=== PATIENT | male | born 1970 | race Caucasian/White ===

== ENCOUNTER 2021-07-18 10:45 | Inpatient (IN) | payer OTHER, SELFPAY ==
[~2021-07-18 10:45] MED LIST: Iopamidol 370 76% 100 ML VIAL ONE; Magnevist 469MG/ML 20 ML VIAL ONE
[2021-07-18 11:01] LABS: #Eosinphils 0.1 thou/uL (0.0-0.7); #Lymphocytes 2.8 thou/uL (1.20-3.40); #Monocytes 0.5 thou/uL (0.11-0.59); #Neutrophils 2.8 thou/uL (1.40-6.50); %Basophils 0.8 % (0.0-1.0); %Eosinophils 1.9 % (0.0-10.0); %Monocytes 8.2 % (0.0-10.0); %Neutrophils 45.1 % (42.0-75.0); Hemoglobin 11.9 g/dL (14.0-18.0); Mean Corpuscular HGB CONC 32.3 g/dL (32.0-36.0); Mean Corpuscular Hemoglobin 28.9 pg (27.0-31.0); Mean Corpuscular Volume 89.2 fL (78.0-98.0); Platelet Count 186 thou/uL (130-400); RBC Distribution Width 14.2 % (11.5-14.5); Red Blood Cell (RBC) Count 4.12 mill/uL (4.70-6.10); White Blood Cell (WBC) Count 6.3 thou/uL (4.8-10.8)
[2021-07-18 11:13] LABS: PTT 30.3 sec (22.9-36.1); Prothrombin Time 13.3 sec (12.0-14.7)
[2021-07-18 11:21] LABS: ALT (SGPT) 8 U/L (8-55); AST (SGOT) 11 U/L (5-34); Albumin 4.2 g/dL (3.5-5.0); Alkaline Phosphatase 54 U/L (40-110); Anion Gap 14 mmol/L (10-20); BUN (Urea Nitrogen) 8 mg/dL (8.4-25.7); Bilirubin, Total 0.2 mg/dL (0.2-1.2); Calc. Creatinine Clearance 0 mL/min (70-130); Carbon Dioxide 23 mmol/L (22-29); Chloride 108 mmol/L (98-107); Globulin 2.9 g/dL (2.4-3.5); Glucose 105 mg/dL (70-105); Potassium 4.3 mmol/L (3.5-5.1); Protein, Total 7.1 g/dL (6.0-8.3); Sodium 141 mmol/L (136-145)
[2021-07-18] MEDS ORDERED: Acetaminophen 650 MG Suppository PR PRN (15:00)
[2021-07-18] MEDS ORDERED: Bisacodyl 10 MG SUPP PR PRN (15:00)
[2021-07-18] MEDS ORDERED: Ondansetron PF 4 MG/2 ML Vial IVP PRN (15:00)
[2021-07-18 16:28] VITALS: BMI 28.5
[2021-07-18 17:55] LABS: Bacteria/HPF None Seen HPF (None Seen); Bilirubin Negative (Negative); Blood, Urine Negative (Negative); Clarity Clear (Clear); Glucose, Urine (Dipstick) Normal (Negative); Ketone, Urine Negative (Negative); Leukocyte Negative Leu/uL (Negative); Nitrite Negative (Negative); Protein, Urine (Dipstick) Negative (Neg-Trace); RBC/HPF 0-3 HPF (0-3); Specific Gravity, Urine 1.021 (1.002-1.036); Squamous Epithelial None Seen HPF (0-3); Urobilinogen Normal mg/dL (Less than 2); WBC/HPF 0-3 HPF (0-3)
[2021-07-18 18:10] LABS: SARS-CoV-2 NAA Rapid Test Not Detected (NotDetected)
[2021-07-18] MEDS: Sodium Chloride 0.45% 1,000 ML IV SCH (18:24)
[2021-07-18] MEDS: Ketorolac Tromethamine 30 MG/ML VIAL IVP PRN (18:37)
[2021-07-19] MEDS: Ketorolac Tromethamine 30 MG/ML VIAL IVP PRN ×2 (02:02→08:08)
[2021-07-19] MEDS: Sodium Chloride 0.45% 1,000 ML IV SCH ×3 (02:03→20:51)
[2021-07-19 05:50] LABS: #Eosinphils 0.1 thou/uL (0.0-0.7); #Monocytes 0.4 thou/uL (0.11-0.59); #Neutrophils 2.7 thou/uL (1.40-6.50); %Basophils 0.6 % (0.0-1.0); %Eosinophils 1.9 % (0.0-10.0); %Lymphocytes 47.6 % (21.0-51.0); %Monocytes 6.9 % (0.0-10.0); %Neutrophils 43.1 % (42.0-75.0); Hemoglobin 11.6 g/dL (14.0-18.0); Mean Corpuscular HGB CONC 32.4 g/dL (32.0-36.0); Mean Corpuscular Hemoglobin 28.6 pg (27.0-31.0); Mean Corpuscular Volume 88.2 fL (78.0-98.0); Platelet Count 178 thou/uL (130-400); Red Blood Cell (RBC) Count 4.06 mill/uL (4.70-6.10); White Blood Cell (WBC) Count 6.3 thou/uL (4.8-10.8)
[2021-07-19 06:10] LABS: Anion Gap 12 mmol/L (10-20); BUN (Urea Nitrogen) 7 mg/dL (8.4-25.7); Calc. Creatinine Clearance 169 mL/min (70-130); Calcium 9.4 mg/dL (7.8-10.44); Carbon Dioxide 24 mmol/L (22-29); Chloride 107 mmol/L (98-107); Glucose 86 mg/dL (70-105); Potassium 4.1 mmol/L (3.5-5.1); Sodium 139 mmol/L (136-145)
[2021-07-19] MEDS ORDERED: Pantoprazole 40 MG VIAL IVP SCH (09:00)
[2021-07-19] MEDS: VANCOMYCIN 2 GRAM/500 ML BAG 2 GM in Premix Bag 1 BAG IVPB SCH (12:09)
[2021-07-19] MEDS: Morphine 2 MG/ML VIAL SLOW IVP PRN (15:01)
[2021-07-19] MEDS: Cefepime 2 GM in Sodium Chloride 0.9% 100 ML IVPB SCH (15:02)
[2021-07-19] MEDS: hydrALAZINE 25 MG TAB PO SCH ×2 (17:21→20:42)
[2021-07-19] MEDS: Atorvastatin Calcium 40 MG TAB PO SCH (20:42)
[2021-07-19] MEDS: Carvedilol 25 MG TAB PO SCH (20:43)
[2021-07-19] MEDS: levETIRAcetam 500 MG TAB PO SCH (20:43)
[2021-07-20] MEDS: VANCOMYCIN 2 GRAM/500 ML BAG 2 GM in Premix Bag 1 BAG IVPB SCH (00:17)
[2021-07-20] MEDS: Morphine 2 MG/ML VIAL SLOW IVP PRN ×2 (01:20→05:36)
[2021-07-20] MEDS: Cefepime 2 GM in Sodium Chloride 0.9% 100 ML IVPB SCH (02:30)
[2021-07-20 05:50] LABS: #Eosinphils 0.1 thou/uL (0.0-0.7); #Lymphocytes 2.3 thou/uL (1.20-3.40); #Monocytes 0.5 thou/uL (0.11-0.59); #Neutrophils 2.8 thou/uL (1.40-6.50); %Basophils 0.4 % (0.0-1.0); %Eosinophils 2.2 % (0.0-10.0); %Lymphocytes 40.6 % (21.0-51.0); %Monocytes 8.3 % (0.0-10.0); %Neutrophils 48.6 % (42.0-75.0); Hemoglobin 11.4 g/dL (14.0-18.0); Mean Corpuscular HGB CONC 32.6 g/dL (32.0-36.0); Mean Corpuscular Hemoglobin 28.2 pg (27.0-31.0); Mean Corpuscular Volume 86.5 fL (78.0-98.0); Platelet Count 175 thou/uL (130-400); RBC Distribution Width 14.2 % (11.5-14.5); Red Blood Cell (RBC) Count 4.03 mill/uL (4.70-6.10); White Blood Cell (WBC) Count 5.7 thou/uL (4.8-10.8)
[2021-07-20 06:19] LABS: ALT (SGPT) 9 U/L (8-55); AST (SGOT) 12 U/L (5-34); Albumin 3.8 g/dL (3.5-5.0); Alkaline Phosphatase 54 U/L (40-110); Anion Gap 11 mmol/L (10-20); BUN (Urea Nitrogen) 7 mg/dL (8.4-25.7); Bilirubin, Total 0.3 mg/dL (0.2-1.2); Calc. Creatinine Clearance 179 mL/min (70-130); Calcium 9.3 mg/dL (7.8-10.44); Carbon Dioxide 23 mmol/L (22-29); Chloride 109 mmol/L (98-107); Glucose 84 mg/dL (70-105); Magnesium 1.8 mg/dL (1.6-2.6); Potassium 3.9 mmol/L (3.5-5.1); Protein, Total 6.8 g/dL (6.0-8.3); Sodium 139 mmol/L (136-145)
[2021-07-20] MEDS ORDERED: oxyCODONE ER 10 MG TAB PO SCH (09:00)
[2021-07-20] MEDS: Carvedilol 25 MG TAB PO SCH ×2 (09:08→22:02)
[2021-07-20] MEDS: levETIRAcetam 500 MG TAB PO SCH ×2 (09:08→22:07)
[2021-07-20] MEDS: hydrALAZINE 25 MG TAB PO SCH ×4 (09:08→22:02)
[2021-07-20] MEDS: Amlodipine 10 MG TAB PO SCH (09:08)
[2021-07-20] MEDS ORDERED: Iopamidol 370 76% 100 ML VIAL ONE (09:17)
[2021-07-20] MEDS: Acetaminophen 500 MG TAB PO SCH ×3 (09:54→22:02)
[2021-07-20] MEDS ORDERED: Dexamethasone 10 MG/ML VIAL SLOW IVP SCH (11:15)
[2021-07-20] MEDS: cefTRIAXone\\ROCEPHIN 2 GM in Sodium Chloride 0.9% 100 ML IVPB SCH ×2 (11:27→21:27)
[2021-07-20] MEDS: Sodium Chloride 0.45% 1,000 ML IV SCH (11:36)
[2021-07-20] MEDS: Prochlorperazine 10 MG/2 ML VIAL IVP SCH ×2 (13:46→19:54)
[2021-07-20] MEDS: diphenhydrAMINE 50 MG/ML VIAL IVP SCH ×2 (13:47→19:55)
[2021-07-20] MEDS: Dexamethasone 4 MG TAB PO SCH (19:54)
[2021-07-20] MEDS: Atorvastatin Calcium 40 MG TAB PO SCH (22:02)
[2021-07-21] MEDS: diphenhydrAMINE 50 MG/ML VIAL IVP SCH ×2 (01:14→05:55)
[2021-07-21] MEDS: Dexamethasone 4 MG TAB PO SCH ×4 (01:15→17:44)
[2021-07-21] MEDS: Prochlorperazine 10 MG/2 ML VIAL IVP SCH ×2 (01:15→05:55)
[2021-07-21 05:09] LABS: #Lymphocytes 2.8 thou/uL (1.20-3.40); #Monocytes 0.5 thou/uL (0.11-0.59); #Neutrophils 3.5 thou/uL (1.40-6.50); %Basophils 0.4 % (0.0-1.0); %Eosinophils 0.6 % (0.0-10.0); %Lymphocytes 40.8 % (21.0-51.0); %Monocytes 7.5 % (0.0-10.0); %Neutrophils 50.7 % (42.0-75.0); Hemoglobin 11.7 g/dL (14.0-18.0); Mean Corpuscular HGB CONC 32.7 g/dL (32.0-36.0); Mean Corpuscular Hemoglobin 28.2 pg (27.0-31.0); Mean Corpuscular Volume 86.5 fL (78.0-98.0); Platelet Count 208 thou/uL (130-400); Red Blood Cell (RBC) Count 4.15 mill/uL (4.70-6.10); White Blood Cell (WBC) Count 6.9 thou/uL (4.8-10.8)
[2021-07-21 05:29] LABS: ALT (SGPT) 9 U/L (8-55); AST (SGOT) 10 U/L (5-34); Alkaline Phosphatase 53 U/L (40-110); Anion Gap 13 mmol/L (10-20); BUN (Urea Nitrogen) 10 mg/dL (8.4-25.7); Bilirubin, Total 0.3 mg/dL (0.2-1.2); Calc. Creatinine Clearance 174 mL/min (70-130); Calcium 9.5 mg/dL (7.8-10.44); Carbon Dioxide 23 mmol/L (22-29); Chloride 107 mmol/L (98-107); Globulin 3.2 g/dL (2.4-3.5); Glucose 104 mg/dL (70-105); Potassium 4.1 mmol/L (3.5-5.1); Protein, Total 7.2 g/dL (6.0-8.3); Sodium 139 mmol/L (136-145)
[2021-07-21] MEDS: Sodium Chloride 0.45% 1,000 ML IV SCH ×2 (05:55→17:47)
[2021-07-21] MEDS: Acetaminophen 500 MG TAB PO SCH ×3 (08:38→20:41)
[2021-07-21] MEDS: hydrALAZINE 25 MG TAB PO SCH ×4 (08:38→20:41)
[2021-07-21] MEDS: Amlodipine 10 MG TAB PO SCH (08:38)
[2021-07-21] MEDS: levETIRAcetam 500 MG TAB PO SCH ×2 (08:38→20:42)
[2021-07-21] MEDS: Carvedilol 25 MG TAB PO SCH ×2 (08:39→20:42)
[2021-07-21] MEDS: cefTRIAXone\\ROCEPHIN 2 GM in Sodium Chloride 0.9% 100 ML IVPB SCH ×2 (10:00→20:44)
[2021-07-21] MEDS: oxyCODONE ER 10 MG TAB PO SCH (11:19)
[2021-07-21] MEDS: diphenhydrAMINE 25 MG in Sodium Chloride 0.9% 50 ML IVPB SCH ×2 (12:22→17:44)
[2021-07-21] MEDS: Prochlorperazine Edisylate 10 MG in Sodium Chloride 0.9% 50 ML IVPB SCH ×2 (12:23→17:44)
[2021-07-21] MEDS: Atorvastatin Calcium 40 MG TAB PO SCH (20:42)
[2021-07-22] MEDS: Sodium Chloride 0.45% 1,000 ML IV SCH ×2 (00:43→20:09)
[2021-07-22] MEDS: diphenhydrAMINE 25 MG in Sodium Chloride 0.9% 50 ML IVPB SCH ×2 (00:43→05:28)
[2021-07-22] MEDS: Dexamethasone 4 MG TAB PO SCH ×5 (00:43→23:40)
[2021-07-22] MEDS: Prochlorperazine Edisylate 10 MG in Sodium Chloride 0.9% 50 ML IVPB SCH ×2 (01:18→05:53)
[2021-07-22] MEDS: oxyCODONE ER 10 MG TAB PO SCH ×2 (09:40→21:16)
[2021-07-22] MEDS: Amlodipine 10 MG TAB PO SCH (09:41)
[2021-07-22] MEDS: levETIRAcetam 500 MG TAB PO SCH ×2 (09:41→21:15)
[2021-07-22] MEDS: Acetaminophen 500 MG TAB PO SCH ×3 (09:42→21:15)
[2021-07-22] MEDS: Carvedilol 25 MG TAB PO SCH ×2 (09:42→21:15)
[2021-07-22] MEDS: hydrALAZINE 25 MG TAB PO SCH ×4 (09:42→21:14)
[2021-07-22] MEDS: cefTRIAXone\\ROCEPHIN 2 GM in Sodium Chloride 0.9% 100 ML IVPB SCH ×2 (09:43→22:23)
[2021-07-22] MEDS: Atorvastatin Calcium 40 MG TAB PO SCH (21:15)
[2021-07-23] MEDS: Dexamethasone 4 MG TAB PO SCH ×3 (05:37→16:06)
[2021-07-23] MEDS: Carvedilol 25 MG TAB PO SCH ×2 (08:44→21:07)
[2021-07-23] MEDS: Acetaminophen 500 MG TAB PO SCH ×3 (08:44→21:06)
[2021-07-23] MEDS: hydrALAZINE 25 MG TAB PO SCH ×4 (08:44→21:08)
[2021-07-23] MEDS: Sodium Chloride 0.45% 1,000 ML IV SCH (08:44)
[2021-07-23] MEDS: Amlodipine 10 MG TAB PO SCH (08:47)
[2021-07-23] MEDS: levETIRAcetam 500 MG TAB PO SCH ×2 (08:47→21:11)
[2021-07-23] MEDS: oxyCODONE ER 10 MG TAB PO SCH ×2 (09:34→21:55)
[2021-07-23] MEDS: cefTRIAXone\\ROCEPHIN 2 GM in Sodium Chloride 0.9% 100 ML IVPB SCH ×2 (09:37→21:11)
[2021-07-23] MEDS ORDERED: Amitriptyline HCl 10 MG TAB PO SCH (21:00)
[2021-07-23] MEDS: Atorvastatin Calcium 40 MG TAB PO SCH (21:07)
[2021-07-23 23:53] VITALS: BP 161/92; TEMP 97.5
[2021-07-24] MEDS: Dexamethasone 4 MG TAB PO SCH (00:14)
[2021-07-24] MEDS ORDERED: HYDROcodone/Acetaminophen 10/325 mg Tablet PO SCH (00:45)
[2021-07-24] MEDS: Sodium Chloride 0.45% 1,000 ML IV SCH (02:55)
== END 2021-07-24 03:17 | disposition short-term general hospital (02) | DRG 314 ==
LOC: ERS 10:45 → NEURO 14:38
PROVIDERS: ADMIT Family Medicine; ATTEND Internal Medicine
DX: T82.7XXA Infection and inflammatory reaction due to other cardiac and vascular devices, implants and grafts, initial encounter (principal); G93.6 Cerebral edema; I76 Septic arterial embolism; R45.851 Suicidal ideations; R47.01 Aphasia; M31.8 Other specified necrotizing vasculopathies; G81.91 Hemiplegia, unspecified affecting right dominant side; I66.9 Occlusion and stenosis of unspecified cerebral artery; I10 Essential (primary) hypertension; Z20.822 Contact with and (suspected) exposure to COVID-19; F41.9 Anxiety disorder, unspecified; D64.9 Anemia, unspecified; G40.909 Epilepsy, unspecified, not intractable, without status epilepticus; Y83.8 Other surgical procedures as the cause of abnormal reaction of the patient, or of later complication, without mention of misadventure at the time of the procedure; B95.61 Methicillin susceptible Staphylococcus aureus infection as the cause of diseases classified elsewhere; F31.9 Bipolar disorder, unspecified; Z90.09 Acquired absence of other part of head and neck; Z87.891 Personal history of nicotine dependence; Z88.0 Allergy status to penicillin; Z79.899 Other long term (current) drug therapy
CPT/HCPCS: 36415; 70450; 70496; 70498; 70553; 71045; 71260; 74177; 76705; 80048; 80053; 81001; 82550; 83605; 83735; 84484; 85025; 85610; 85652; 85730; 86140; 87040; 93005; 93306; 94760; 95712; 95819; 95957; A9579; C9113; J0692; J0696; J0780; J1100; J1200; J1885; J2270; J3370; J3490; J8540; Q9967; U0002

== ENCOUNTER 2021-09-17 11:34 | Emergency (ER) | payer OTHER ==
[2021-09-17] MEDS ORDERED: diphenhydrAMINE 50 MG/ML VIAL ONE (11:53)
[2021-09-17] MEDS ORDERED: Metoclopramide HCl 10 MG/2 ML VIAL ONE (11:53)
[2021-09-17 12:16] LABS: #Eosinphils 0.2 thou/uL (0.0-0.7); #Lymphocytes 3.3 thou/uL (1.20-3.40); #Monocytes 0.7 thou/uL (0.11-0.59); #Neutrophils 2.5 thou/uL (1.40-6.50); %Basophils 0.6 % (0.0-1.0); %Eosinophils 2.4 % (0.0-10.0); %Lymphocytes 49.6 % (21.0-51.0); %Monocytes 10.1 % (0.0-10.0); %Neutrophils 37.2 % (42.0-75.0); Hemoglobin 13.1 g/dL (14.0-18.0); Mean Corpuscular Hemoglobin 27.5 pg (27.0-31.0); Mean Corpuscular Volume 83.4 fL (78.0-98.0); Mean Platelet Volume 9.5 fL (7.4-10.4); Platelet Count 170 thou/uL (130-400); RBC Distribution Width 15.5 % (11.5-14.5); Red Blood Cell (RBC) Count 4.77 mill/uL (4.70-6.10); White Blood Cell (WBC) Count 6.7 thou/uL (4.8-10.8)
[2021-09-17 12:27] LABS: INR-International Normal Ratio 1.1; PTT 29.4 sec (22.9-36.1); Prothrombin Time 14.1 sec (12.0-14.7)
[2021-09-17 12:34] LABS: ALT (SGPT) 12 U/L (8-55); AST (SGOT) 12 U/L (5-34); Albumin 4.4 g/dL (3.5-5.0); Alkaline Phosphatase 59 U/L (40-110); Anion Gap 13 mmol/L (10-20); BUN (Urea Nitrogen) 10 mg/dL (8.4-25.7); Bilirubin, Total 0.3 mg/dL (0.2-1.2); Calc. Creatinine Clearance 0 mL/min (70-130); Calcium 9.6 mg/dL (7.8-10.44); Carbon Dioxide 23 mmol/L (22-29); Chloride 109 mmol/L (98-107); Estimated GFR 108; Globulin 2.6 g/dL (2.4-3.5); Glucose 108 mg/dL (70-105); Potassium 3.9 mmol/L (3.5-5.1); Sodium 141 mmol/L (136-145)
[2021-09-17 13:24] LABS: SARS-CoV-2 NAA Rapid Test Not Detected (NotDetected)
== END 2021-09-17 14:30 | disposition home or self-care (01) ==
LOC: ERS 11:34
DX: R51.9 Headache, unspecified (principal); I10 Essential (primary) hypertension; T82.7XXD Infection and inflammatory reaction due to other cardiac and vascular devices, implants and grafts, subsequent encounter; Z20.822 Contact with and (suspected) exposure to COVID-19; Z86.73 Personal history of transient ischemic attack (TIA), and cerebral infarction without residual deficits; Z87.891 Personal history of nicotine dependence; Z79.82 Long term (current) use of aspirin; Z79.899 Other long term (current) drug therapy
CPT/HCPCS: 36415; 70450; 71045; 80053; 83605; 84484; 85025; 85610; 85730; 86850; 86900; 86901; 87040; 93005; 96365; 96366; 96375; J1200; J2765; U0002

== ENCOUNTER 2021-09-29 11:44 | Emergency (ER) | payer OTHER ==
[2021-09-29] MEDS ORDERED: Amlodipine 5 MG TAB ONE (12:15)
== END 2021-09-29 13:21 | disposition home or self-care (01) ==
LOC: ERS 11:44
DX: I10 Essential (primary) hypertension (principal); Z86.73 Personal history of transient ischemic attack (TIA), and cerebral infarction without residual deficits; Z87.891 Personal history of nicotine dependence; Z79.82 Long term (current) use of aspirin; Z79.899 Other long term (current) drug therapy
CPT/HCPCS: 93005

== ENCOUNTER 2021-11-03 14:22 | Inpatient (IN) | payer OTHER ==
[2021-11-03 15:19] LABS: #Basophils 0.1 thou/uL (0.0-0.2); #Eosinphils 0.1 thou/uL (0.0-0.7); #Lymphocytes 3.9 thou/uL (1.20-3.40); #Monocytes 0.7 thou/uL (0.11-0.59); #Neutrophils 3.4 thou/uL (1.40-6.50); %Basophils 0.6 % (0.0-1.0); %Eosinophils 1.1 % (0.0-10.0); %Lymphocytes 47.8 % (21.0-51.0); %Monocytes 8.3 % (0.0-10.0); %Neutrophils 42.1 % (42.0-75.0); Hemoglobin 13.4 g/dL (14.0-18.0); Mean Corpuscular HGB CONC 33.1 g/dL (32.0-36.0); Mean Corpuscular Hemoglobin 27.5 pg (27.0-31.0); Mean Corpuscular Volume 83.1 fL (78.0-98.0); Platelet Count 228 thou/uL (130-400); RBC Distribution Width 15.9 % (11.5-14.5); Red Blood Cell (RBC) Count 4.87 mill/uL (4.70-6.10); White Blood Cell (WBC) Count 8.2 thou/uL (4.8-10.8)
[2021-11-03 16:07] LABS: ALT (SGPT) 20 U/L (8-55); AST (SGOT) 15 U/L (5-34); Albumin 4.5 g/dL (3.5-5.0); Alkaline Phosphatase 66 U/L (40-110); Anion Gap 13 mmol/L (10-20); BUN (Urea Nitrogen) 15 mg/dL (8.4-25.7); Bilirubin, Total 0.4 mg/dL (0.2-1.2); Calc. Creatinine Clearance 0 mL/min (70-130); Calcium 9.9 mg/dL (7.8-10.44); Carbon Dioxide 24 mmol/L (22-29); Chloride 103 mmol/L (98-107); Estimated GFR 104; Globulin 2.8 g/dL (2.4-3.5); Glucose 129 mg/dL (70-105); Potassium 3.3 mmol/L (3.5-5.1); Protein, Total 7.3 g/dL (6.0-8.3); Sodium 137 mmol/L (136-145)
[2021-11-03 16:35] LABS: Bilirubin Negative (Negative); Blood, Urine Negative (Negative); Clarity Clear (Clear); Glucose, Urine (Dipstick) Normal (Negative); Ketone, Urine Negative (Negative); Leukocyte Negative Leu/uL (Negative); Nitrite Negative (Negative); Protein, Urine (Dipstick) Negative (Neg-Trace); Specific Gravity, Urine 1.023 (1.002-1.036); Urobilinogen Normal mg/dL (Less than 2)
[2021-11-03] MEDS ORDERED: Aspirin 325 MG TAB ONE (17:29)
[2021-11-03] MEDS ORDERED: Aspirin Chewable 81 MG TAB ONE (17:43)
[2021-11-03] MEDS ORDERED: Ondansetron PF 4 MG/2 ML Vial ONE (23:45)
[2021-11-03] MEDS ORDERED: Morphine 4 MG/ML VIAL ONE (23:45)
[2021-11-04] MEDS ORDERED: cefTRIAXone\\ROCEPHIN 1 GM VIAL ONE (00:30)
[2021-11-04 00:39] LABS: Acetaminophen Less than 10.0 mcg/mL (10.0-30.0); Alcohol Less than 10 mg/dL (Less than 10); Salicylate Less than 8.0 mg/dL (15.0-30.0)
[2021-11-04 00:40] LABS: Lipase 136 U/L (8-78); Magnesium 1.7 mg/dL (1.6-2.6)
[2021-11-04] MEDS ORDERED: Ondansetron PF 4 MG/2 ML Vial IVP PRN (01:19)
[2021-11-04] MEDS ORDERED: Potassium Chloride 20 MEQ TAB PO SCH (01:30)
[2021-11-04 01:42] LABS: SARS-CoV-2 NAA Rapid Test Not Detected (NotDetected)
[2021-11-04 01:55] LABS: Amphetamine Not Detected (NotDetected); Barbiturates Screen Not Detected (NotDetected); Benzodiazepine Screen Not Detected (NotDetected); Cocaine Metabolite Screen Not Detected (NotDetected); Methadone Not Detected (NotDetected); Methamphetamine Not Detected (NotDetected); Opiate Screen Not Detected (NotDetected); Oxycodone Screen Not Detected (NotDetected); Phencyclidine (PCP) Not Detected (NotDetected); THC/Cannabinoid Screen Not Detected (NotDetected); Tricyclic Screen Not Detected (NotDetected)
[2021-11-04] MEDS ORDERED: Vancomycin 1 GM/200 ML BAG ONE (02:24)
[2021-11-04] MEDS ORDERED: levETIRAcetam 500 MG TAB PO SCH ×2 (03:00→09:00)
[2021-11-04 03:07] VITALS: BMI 31.2
[2021-11-04] MEDS: Acetaminophen 325 MG TAB PO PRN ×2 (03:26→15:35)
[2021-11-04 05:26] LABS: #Eosinphils 0.1 thou/uL (0.0-0.7); #Lymphocytes 3.3 thou/uL (1.20-3.40); #Monocytes 0.7 thou/uL (0.11-0.59); #Neutrophils 5.3 thou/uL (1.40-6.50); %Basophils 0.2 % (0.0-1.0); %Eosinophils 0.7 % (0.0-10.0); %Lymphocytes 35.2 % (21.0-51.0); %Monocytes 7.3 % (0.0-10.0); %Neutrophils 56.6 % (42.0-75.0); Hemoglobin 14.1 g/dL (14.0-18.0); Mean Corpuscular HGB CONC 34.6 g/dL (32.0-36.0); Mean Corpuscular Hemoglobin 29.2 pg (27.0-31.0); Mean Corpuscular Volume 84.4 fL (78.0-98.0); Mean Platelet Volume 9.3 fL (7.4-10.4); Platelet Count 184 thou/uL (130-400); RBC Distribution Width 15.7 % (11.5-14.5); Red Blood Cell (RBC) Count 4.84 mill/uL (4.70-6.10); White Blood Cell (WBC) Count 9.3 thou/uL (4.8-10.8)
[2021-11-04 05:42] LABS: Anion Gap 16 mmol/L (10-20); BUN (Urea Nitrogen) 15 mg/dL (8.4-25.7); Calc. Creatinine Clearance 152 mL/min (70-130); Calcium 9.6 mg/dL (7.8-10.44); Carbon Dioxide 24 mmol/L (22-29); Chloride 103 mmol/L (98-107); Estimated GFR 105; Glucose 113 mg/dL (70-105); Magnesium 1.8 mg/dL (1.6-2.6); Potassium 3.5 mmol/L (3.5-5.1); Sodium 139 mmol/L (136-145)
[2021-11-04] MEDS ORDERED: Enoxaparin Sodium 40 MG/0.4 ML SYRINGE SC SCH (09:00)
[2021-11-04] MEDS ORDERED: Cefadroxil Hydrate 500 mg/5 ml Suspenion PO SCH (09:00)
[2021-11-04] MEDS ORDERED: Iopamidol 370 76% 100 ML VIAL ONE (09:45)
[2021-11-04] MEDS ORDERED: Electrolyte Replacement Protocol 1 EACH FS SCH (10:00)
[2021-11-04] MEDS ORDERED: Magnesium 2 GM/50 ML(in water) 2 GM in Premix Bag 1 BAG IVPB SCH (10:30)
[2021-11-04 16:17] VITALS: BP 127/74; TEMP 97.9
[2021-11-05] MEDS ORDERED: Aspirin 81 mg Enteric Coated Tablet PO SCH (09:00)
== END 2021-11-04 18:40 | disposition short-term general hospital (02) | DRG 70 ==
LOC: ERS 14:22 → NEURO 11-04 01:23 → OBSVTOIN 11-04 15:50
PROVIDERS: ADMIT Internal Medicine; ATTEND Physician Assistant
DX: G93.49 Other encephalopathy (principal); Z20.822 Contact with and (suspected) exposure to COVID-19; G93.6 Cerebral edema; I50.32 Chronic diastolic (congestive) heart failure; I69.351 Hemiplegia and hemiparesis following cerebral infarction affecting right dominant side; R78.81 Bacteremia; I76 Septic arterial embolism; T82.8 Other specified complications of cardiac and vascular prosthetic devices, implants and grafts; Y83.2 Surgical operation with anastomosis, bypass or graft as the cause of abnormal reaction of the patient, or of later complication, without mention of misadventure at the time of the procedure; I11.0 Hypertensive heart disease with heart failure; G40.909 Epilepsy, unspecified, not intractable, without status epilepticus; F31.9 Bipolar disorder, unspecified; E87.6 Hypokalemia; B95.61 Methicillin susceptible Staphylococcus aureus infection as the cause of diseases classified elsewhere; Z88.0 Allergy status to penicillin; Z79.899 Other long term (current) drug therapy; Z79.01 Long term (current) use of anticoagulants; Z95.2 Presence of prosthetic heart valve; Z90.89 Acquired absence of other organs; Z98.890 Other specified postprocedural states; Z87.891 Personal history of nicotine dependence
CPT/HCPCS: 36415; 70450; 70551; 71045; 71275; 74174; 80048; 80053; 80306; 80307; 81003; 83690; 83735; 84484; 85025; 87040; 87077; 87086; 87149; 87186; 93005; 95712; 95819; 95957; 96365; 96375; G0378; J0696; J2270; J2405; J3370; J3475; Q9967; U0002